=== PATIENT | male | born 1995 | race American Indian/Alaskan Native ===

== ENCOUNTER 2021-12-15 11:42 | Emergency (ER) | payer SELFPAY ==
[~2021-12-15] VITALS: Ht 182.9 cm; Wt 86.2 kg
[2021-12-15 11:42] VITALS: BP_SYST 145
--- NOTE | 2021-12-15 11:45 | NUR ---
Patient triaged and placed in waiting room. VSS and patient appears in no acute distress at this time. Accompanied by SELF, awaiting available bed, and MD notified of need for MSE.
--- NOTE | 2021-12-15 12:11 | NUR ---
BROUGHT BACK TO BED #8 AND TRIAGED. REPORT GIVEN TO BERE
--- NOTE | 2021-12-15 12:25 | NUR ---
ER at bedside examining patient.
[2021-12-15] MEDS ORDERED: CETI10CA PO (12:29)
[2021-12-15] MEDS ORDERED: PRED50TA PO (12:29)
--- NOTE | 2021-12-15 12:30 | NUR ---
Pt. bib mom with c/o redness, discomfort and swelling to eyes and area below eyes, pt. states had salad dressing last night with pecans and woke up this at 1am with facial swelling and sporadic hives, had mild SOB used his albuterol inhaler went back to sleep and this am no more hives but still swelling and discomfort to eye area
[2021-12-15 12:58] VITALS: BP_SYST 126
--- NOTE | 2021-12-15 12:58 | NUR ---
Patient given written and verbal discharge instructions and verbalizes understanding. ER Dr. Valerio discussed with patient the results and treatment provided. Patient in stable condition. ID arm band removed. Rx of Prednisone and zyrtec given. Patient educated on pain management and to follow up with PMD. Pain Scale 3. Opportunity for questions provided and answered. Medication side effect fact sheet provided.
== END 2021-12-15 12:58 | disposition home or self-care (01) ==
LOC: SED 11:42
DX: T78.3XXA Angioneurotic edema, initial encounter (principal); Z79.899 Other long term (current) drug therapy
CPT/HCPCS: 99283